=== PATIENT | male | born 1955 | race Two or more races ===

== ENCOUNTER 2018-03-25 22:09 | Emergency (ER) | payer MEDICAID ==
[~2018-03-25] VITALS: Ht 165.1 cm; Wt 123.8 kg
[2018-03-26] MEDS ORDERED: BENZOCAINE (DENTAL) 20 % SPRAY 60ML MT ONE (00:15)
[2018-03-26] MEDS ORDERED: cefTRIAXone SOD 1,000 MG VL ONE (00:29)
[2018-03-26] MEDS ORDERED: methylPREDNISolone SOD SUCC 125 MG/2 ML VL ONE (00:29)
[2018-03-26] MEDS ORDERED: methylPREDNISolone SOD SUCC 125 MG/2 ML VL IM ONE (00:30)
[2018-03-26] MEDS ORDERED: cefTRIAXone SOD 1,000 MG VL IM ONE (00:30)
[2018-03-26 00:40] VITALS: BP 129/72
== END 2018-03-26 02:02 | disposition home or self-care (01) ==
LOC: ER 22:09
DX: K02.9 Dental caries, unspecified (principal); H92.02 Otalgia, left ear
CPT/HCPCS: 96372; 99283; J0696; J2930